=== PATIENT | female | born 1955 | race Caucasian/White ===

== ENCOUNTER → 2017-02-16 | Day surgery (SDC) | payer BC ==
[~2017-02-16] MED LIST: ACETAMINOPHEN PO; ADVIL PM CAPLE1 EACH PO; AFRIN15 ML; AMLODIPINE BESY10 MG PO; ANTIVERT PO; ASPIRIN PO; ASPIRINEC PO; ATORVASTATIN CA20 MG PO; AUGMENTIN PO; BENAZEPRIL HCL40 MG PO; BENAZEPRIL PO; BIO FREEZE; CARAFATE PO; CARAFATE1 G PO; CELEXA20 MG PO; CIPRO PO; COLACE PO; DESIPRAMINE HCL PO; DYMISTA NASAL S23 GM; FLAGYL PO; FLEXERIL PO; FLONASE 0.05% N16 G1; FLONASE16 GM; GABAPENTIN400 M2 PO; HYDROCODON-ACE1 EAC5 PO; K-DUR20 ME1 PO; LEVAQUIN PO; LIDOCAINE VISCOU1 ML PO; LORTAB 10/500 T1 TAB PO; LOTENSIN40 MG PO; LOTREL 10/20 MG1 CAP PO; LOTREL PO; MAALOX PLUS PO; MACROBID100 MG PO; MAGNESIUM OXID200 MG PO; MAGNESIUM400 M1 PO; MEDROL4 MG/DOSE- PO; METOPROLOL SUCC50 MG PO; MILK OF MAGNESIA PO; MIRAPEX PO; MULTI VITAMIN1 EACH PO; NAPROXEN500 M1 PO; NEURONTIN PO; NEURONTIN300 MG PO; NEURONTIN600 MG PO; NORVASC10 MG PO; OMEPRAZOLE20 M2 PO; OMEPRAZOLE40 M1 PO; PATIENT'S PHARMACY; PERCOCET 5-3251 TAB PO; PHENERGAN PO; PHENERGAN25 MG PO; PRILOSEC PO; PRILOSEC20 MG PO; PROAIR RESPICL90 MCG INH; PROTONIX PO; RANITIDINE HCL150 M1 PO; REGLAN PO; REGLAN10 MG PO; SKELAXIN PO; TIZANIDINE HCL4 M1 PO; TOPROL XL 50 MG50 MG PO; TOPROL XL PO; TOPROL XL100 MG PO; TOPROL XL50 MG PO; TUMS; TYLENOL #3 PO; VICODIN 5/500 T1 TAB PO; VICODIN PO; ZANTAC PO; ZANTAC300 MG PO
--- NOTE | ~2017-02-16 | OR ---
Unit #: [id number] #: [id number] Patient: WILMER MCKEE [id number] [address] [address] [id number] MR#: [id number] NAME: WILMER MCKEE ROOM: Date of Procedure: 02/16/2017 Admission Date: 02/16/2017 Surgeon: Jack Fitch M.D. : 1955 Attending Physician: Jack Fitch M.D. Primary Care Physician: Woodrow Sharif D.O. OPERATIVE REPORT PRIMARY CARE PHYSICIAN Woodrow Sharif D.O. PREOPERATIVE DIAGNOSES The patient has presented with history of dysphagia. In addition, she needs a colorectal cancer screening and a colonoscopy. PROCEDURES PERFORMED 1. Upper gastrointestinal endoscopy and biopsy. 2. Upper gastrointestinal endoscopy and dilation with 60-Colomb[place] Barr dilator as well as colonoscopy with polypectomy. POSTOPERATIVE DIAGNOSES For upper endoscopy: 1. The patient had distal esophageal Schatzki ring, which was clearly obstructing. It was dilated using a 60-Colomb[place] Barr dilator. 2. Mild prepyloric antral gastritis. 3. Rest of the examination up to third part of duodenum was normal. For colonoscopy: 1. The patient has single sessile polyp in the sigmoid colon. This was about 7 mm in size and was removed using snare polypectomy. 2. [id number] sigmoid and descending colon diverticulosis. 3. Medium-sized external and internal hemorrhoids. 4. Rest of the examination up to cecum and terminal ileum was normal. The quality of the prep was excellent. RECOMMENDATIONS 1. The patient will be started on pantoprazole 40 mg p.o. daily. 2. She will require a repeat colonoscopy in 5 years. 3. She will be followed up in the office in 3 months' time. SEDATION USED MAC. DESCRIPTION OF PROCEDURE Following detailed explanation of the potential risks and complications of an upper endoscopy and a colonoscopy, namely perforation, bleeding, and complications related to sedation, the patient was brought to GI lab and laid in the left lateral decubitus position. Lubricated tip of the Olympus video upper endoscope was passed through the bite block into the proximal esophagus under direct vision. The entire esophageal mucosa was examined. The patient was noted to have distal esophageal Schatzki ring Unit #: [id number] #: [id number] Patient: WILMER MCKEE with a classic appearance. It was clearly obstructing. The scope was then advanced into the gastric cavity and the latter was insufflated. Mucosa of the fundus, body, and antrum examined and [id number] prepyloric antral erosive gastritis noted. Pylorus was intubated with visualization of the normal duodenal bulb and second and third part of the duodenum. Upon withdrawal and retroflexion, incisura, cardia, and greater curve examined and a biopsy obtained from the antrum for CLOtest. The scope was then withdrawn in the distal esophagus. The entire esophageal mucosa was examined all the way up to pharynx, no additional findings noted. A 60-Colomb[place] Barr dilator was introduced through the oral cavity into the esophagus. Relook endoscopy showed excellent dilation of the distal esophageal ring. Minimal bleeding was noted from the area. This was thoroughly washed with water. Good hemostasis was achieved. The examination table was then turned by 180 degrees and the patient was positioned for a colonoscopy. A digital rectal examination was performed. The latter revealed presence of external and internal hemorrhoids. No mass was felt in the rectum. Lubricated tip of the Olympus video colonoscope was inserted through the anus and advanced under direct vision. The scope was advanced and passed up to sigmoid into descending colon. Multiple medium-sized diverticula were noted in this area. The scope tip was then navigated all the way up to cecum with visualization of the ileocecal valve and the appendiceal orifice. Preparation was excellent with good visualization and photodocumentation was obtained. Last few inches of the terminal ileum also visualized after intubation of the ileocecal valve and appeared normal. Successive segments of the colonic mucosa were examined upon withdrawal and the patient was noted to have single sessile polyp in the mid sigmoid colon. The latter was removed using snare polypectomy. It was retrieved and sent for histology. No additional polyps noted. Other than the diverticula noted earlier, the patient was also noted to have a combination of external and internal hemorrhoids. The scope was then withdrawn. The patient returned to the recovery area. She tolerated the procedure without any postprocedure complications. Dictated by.Edie Babin TD: 02/16/2017 23:17 JOB #: [id number] CC: Woodrow Sharif D.O. OPERATIVE REPORT Page 1 of 1 X Jack Fitch MD PROCEDURE OPERATIVE NOTE
== END | disposition home or self-care (01) ==
LOC: COPS 11:12
DX: Z12.11 Encounter for screening for malignant neoplasm of colon (principal); K22.2 Esophageal obstruction; K63.5 Polyp of colon; K29.00 Acute gastritis without bleeding; K57.30 Diverticulosis of large intestine without perforation or abscess without bleeding; K64.8 Other hemorrhoids; K64.4 Residual hemorrhoidal skin tags; I10 Essential (primary) hypertension; M19.90 Unspecified osteoarthritis, unspecified site; F17.210 Nicotine dependence, cigarettes, uncomplicated; G89.29 Other chronic pain; J44.9 Chronic obstructive pulmonary disease, unspecified; K21.9 Gastro-esophageal reflux disease without esophagitis; Z85.41 Personal history of malignant neoplasm of cervix uteri; Z87.19 Personal history of other diseases of the digestive system; Z88.1 Allergy status to other antibiotic agents; Z88.2 Allergy status to sulfonamides; Z79.891 Long term (current) use of opiate analgesic; Z79.899 Other long term (current) drug therapy; Z90.49 Acquired absence of other specified parts of digestive tract; Z90.710 Acquired absence of both cervix and uterus; Z98.890 Other specified postprocedural states
CPT/HCPCS: 87077; 88305; J1885; J2250; J3010